=== PATIENT | male | born 1955 | race Caucasian/White ===

== ENCOUNTER 2021-04-18 06:15 | Day surgery (SDC) | payer OTHER ==
[~2021-04-18] VITALS: Ht 182.9 cm; Wt 108.9 kg
--- NOTE | ~2021-04-18 | O ---
[facility] [place] [address] OPERATIVE REPORT Name: CHARLES MORRIS Room #: 150-1 [facility]#: [id number] Admission: 04/18/21 Attend Phys: Tanmay Diane MD Discharge: Date of : 55 Report #: [id number] THIS REPORT FOR: cc: FAM - Family physician unknown FAM - Family physician unknown Tanmay Diane MD ~ cc: Ernie Johnson DO DATE OF SERVICE: 04/18/2021 PATIENT OF: Dr. Tanmay Diane and Dr. Ernie Johnson. PREOPERATIVE DIAGNOSIS: Incarcerated umbilical hernia. POSTOPERATIVE DIAGNOSIS: Incarcerated umbilical hernia. PROCEDURE: Repair of an incarcerated umbilical hernia. SURGEON: Tanmay Diane M.D. ANESTHESIA USED: Local IV sedation. DESCRIPTION OF PROCEDURE: The patient was brought to the operating room and placed on the operating table in the supine position. Sequential compression devices were in place for DVT prophylaxis. There was no indication for preoperative antibiotics. A skin and subcutaneous tissue were then infiltrated after prepping and draping. The skin and subcutaneous tissue was infiltrated with 0.5% Marcaine and 1% Xylocaine with epinephrine. Transverse infraumbilical skin incision was then performed using a #15 scalpel blade. Hemostasis obtained using electrocautery. Dissection was carried down through subcutaneous tissue to hernia sac and some incarcerated preperitoneal fat. This was all dissected free and reduced back into the abdomen. The fascial defect was easily closed with 3 interrupted [id number] #1 Prolene sutures. The umbilicus was then re-tacked to the fascia using interrupted 2-0 chromic sutures. The deep and superficial subcutaneous tissue was then reapproximated using simple interrupted 2-0 chromic sutures and the skin then closed with a running 4-0 subcuticular Vicryl stitch. The wound was then dressed with Dermabond, Telfa, 4 x 4 gauze, sponge, and tape. The patient was then awakened from the IV sedation and taken to recovery room awake, alert, in good condition. Estimated blood loss was approximately 5-10 mL and the patient tolerated the procedure well. All sponge, lap and instrument counts were correct x2. By: [id number] Tanmay Diane MD /nt
[~2021-04-18 06:15] MED LIST: BYSTOLIC10 MG PO; LISINOPRIL10 MG PO; ROSUVASTATIN CA10 MG PO
[2021-04-18 06:52] VITALS: BP 167/91
--- NOTE | 2021-04-18 08:30 | EKG ---
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: NICOLE : 1955 Requested By: Andreea Martinez Order Number: [id number] MD: Curtis Orozco Measurements Intervals [place] Rate: 57 P: 0 OK: 202 QRS: -18 QRSD: 93 T: 4 QT: 452 QTc: 440 Interpretive Statements Sinus rhythm Left ventricular hypertrophy No previous ECG available for comparison Electronically Signed On 04-18-2021 8:30:11 CDT by Curtis Orozco [email or web address] <ELECTRONICALLY SIGNED> By: Curtis Orozco MD, [facility] 04/18/2130 0722 0722 Curtis Orozco MD, [facility] /EPI
[2021-04-18] MEDS ORDERED: HYDROCODON-ACE1 EAC7 PO (08:45)
[2021-04-18 10:07] VITALS: BP 167/91
[2021-04-18 10:14] VITALS: BP 167/91
== END 2021-04-18 11:10 | disposition home or self-care (01) ==
LOC: TBA 06:15 → OR 06:15 → TBA 06:17 → OR 08:53
PROVIDERS: ATTEND Surgery
DX: K42.0 Umbilical hernia with obstruction, without gangrene (principal); I10 Essential (primary) hypertension; E78.00 Pure hypercholesterolemia, unspecified; Z98.890 Other specified postprocedural states; Z79.899 Other long term (current) drug therapy; Z20.822 Contact with and (suspected) exposure to COVID-19; Z79.891 Long term (current) use of opiate analgesic
CPT/HCPCS: 50010; 50101; 50386; 50403; 54118; 56524; 56526; 62110; 62850; 70005